=== PATIENT | female | born 2000 | race Caucasian/White ===

== ENCOUNTER → 2020-04-10 09:15 | Outpatient (BNVA) | payer SELFPAY | PROVIDERS: Family Provider Family Medicine; Visit Provider Nurse Practitioner Women's Health | DX: N91.4 Secondary oligomenorrhea (principal) | CPT/HCPCS: 84146; 84443; 84702 ==

== ENCOUNTER 2020-07-20 11:06 | Outpatient (CLI) | payer MEDICAID, SELFPAY ==
--- NOTE | 2020-07-20 11:16 | XR_ITS ---
WS: [id number] SCOLIOSIS SURVEY Upright AP and lateral radiographs of the thoracic and lumbar spine are submitted. HISTORY: spinal curve. Scoliosis. COMPARISON: 04/05/2014 Standing AP and lateral views of the thoracolumbar spine demonstrate thoracolumbar scoliosis. Mild RIGHT convex curvature thoracic spine centered at T9 of 19 degrees is similar to the prior study . Vertebral body complement is normal. LEFT convex curvature lumbar spine centered at L3 of 19 degrees also is stable. Prior cholecystectomy. XR/XR scoliosis survey - [id number] IMPRESSION: S-shaped thoracolumbar scoliosis without significant interval change since 04/05. Minimal increased by 2 degrees of the thoracic and lumbar curvatures.
[2020-07-20 14:10] LABS: Hematocrit 40.8 % (37.0-47.0); Hemoglobin 12.8 g/dL (11.5-15.3); Mean Corpuscular HGB Conc 31.4 g/dL (30.0-36.0); Mean Corpuscular Hemoglobin 26.4 pg (28.0-34.0); Mean Corpuscular Volume 84.1 fL (81-99); Mean Platelet Volume 9.2 fL (7.4-10.4); Platelet Count 321 10^3/cmm (130-400); Red Blood Count 4.85 10^6/uL (4.1-5.3); Red Cell Distribution Width 13.2 % (12.1-15.1); White Blood Count 8.7 10^3/uL (4.5-13.0)
[2020-07-20 14:29] LABS: Ferritin 57 ng/mL (15-150); Iron 55 ug/dL (37-145)
[2020-07-20 14:30] LABS: Absolute Segmented Neutrophil 5.8 10/cmm (1.6-7.1); Lymphocytes 28 %; Lymphocytes Absolute 2.6 10^3/cmm (1.2-3.4); Monocytes Absolute 0.3 10^3/cmm (0.1-0.6); Platelet Estimate Normal (Normal); Segmented Neutrophils 67 %; Total Cells Counted 100 (0-100)
== END 2020-07-20 11:07 | disposition home or self-care (01) ==
LOC: RADWPI 11:11
PROVIDERS: Family Provider Family Medicine; PCP Family Medicine; Visit Provider Nurse Practitioner
DX: M43.9 Deforming dorsopathy, unspecified (principal); Z86.2 Personal history of diseases of the blood and blood-forming organs and certain disorders involving the immune mechanism; M41.85 Other forms of scoliosis, thoracolumbar region
CPT/HCPCS: 72083; 81025; 82728; 83540; 85007; 85027; 85045

== ENCOUNTER 2021-05-27 15:33 | Outpatient (CLI) | payer BC, MEDICAID, SELFPAY ==
--- NOTE | 2021-05-27 15:37 | US_ITS ---
WS: [id number] OBSTETRICAL ULTRASOUND COMPLETE HISTORY: ANATOMY US COMPARISON: None available. Single intrauterine gestation in Cephalic presentation. Cervix is Closed and normal length. Cervical length is 4.1 cm. Normal amount of amniotic fluid surrounds the fetus. Placenta: Anterior, no previa or abruption. Placenta grade 1 Heart: 144 BPM. Four chambers are identified. RIGHT and LEFT outflow tracts are unremarkable. Anatomy: Intracranial structures and spine are normal. Spine is posterior during the examinatio n. No abnormality visualized. kidneys, stomach and urinary bladder are unremarkable. Abdominal wall, three-vessel cord and cord insertion site are normal. 4 extremities are present. profile: Unremarkable. Gender: Male. measurements: BPD = 4.6 cm = 20w0d HC = 17.6 cm = 20w1d AC = 14.8 cm = 20w1d FL = 3.2 cm = 20w1d EFW: 331 g. Biometry is internally concordant. AGA by ultrasound: 20w1d JOSE by ultrasound: 10/13/2021 US/US OB >= 14 weeks fetus [id number] IMPRESSION: 1. Single intrauterine gestation of 20w1d with an JOSE of 10/13/2021. 2. Unremarkable screening survey of anatomy.
== END 2021-05-27 15:34 | disposition home or self-care (01) ==
LOC: US 15:36
PROVIDERS: PCP Family Medicine; Visit Provider Family Medicine
DX: Z34.92 Encounter for supervision of normal pregnancy, unspecified, second trimester; Z3A.20 20 weeks gestation of pregnancy
CPT/HCPCS: 76805

== ENCOUNTER → 2021-08-01 11:23 | Day surgery (SDC) | payer BC, MEDICAID, SELFPAY ==
[2021-08-01 12:45] VITALS: BP 116/62; PULSE 88; RESP 16; TEMP 36.7; O2SAT 99
[2021-08-01 12:52] VITALS: BMI 34.2
[2021-08-01 13:00] VITALS: BP 116/62; PULSE 88; RESP 16; TEMP 36.7; O2SAT 99
== END ==
PROVIDERS: PCP Family Medicine; Visit Provider Family Medicine
DX: Z32.00 Encounter for pregnancy test, result unknown (principal)
CPT/HCPCS: 36415; 36430; 86850; 86900; 90384; 96372

== ENCOUNTER 2021-10-15 06:19 | Inpatient (IN) | payer BC, MEDICAID, SELFPAY ==
[2021-10-15] VITALS (60 sets, daily range): BP systolic 111–148; BP diastolic 53–84; PULSE 73–116; RESP 20; TEMP 36.6–36.9; O2SAT 99–100; BMI 35.6
[2021-10-15] MEDS: miSOPROStol 100 mcg tablet 25 MCG VAGINAL (07:30)
[2021-10-15 07:33] LABS: Basophils # 0.1 10^3/uL (0.0-0.1); Basophils % 0.6 %; Eosinophils # 0.1 10^3/uL (0.0-0.8); Eosinophils % 1.6 %; Hematocrit 31.7 % (37.0-47.0); Lymphocytes % 24.3 %; Mean Corpuscular HGB Conc 31.5 g/dL (30.0-36.0); Mean Corpuscular Hemoglobin 26.2 pg (28.0-34.0); Mean Corpuscular Volume 83.2 fl (81-99); Mean Platelet Volume 10.3 fL (7.4-10.4); Monocytes # 0.7 10^3/uL (0.2-0.9); Monocytes % 8.9 %; Neutrophils # 5.11 10^3/uL (1.8-7.7); Neutrophils % 63.7 %; Nucleated Red Blood Cells % 0 %; Platelet Count 218 10^3/cmm (130-400); Red Blood Count 3.81 10^6/uL (4.1-5.3)
--- NOTE | 2021-10-15 08:39 | PM.HP ---
Providers/Chief Complaint Admitting Physician: Addison Mejia MD Primary Care Provider: Addison Mejia MD Chief Complaint: INDUCTION History of Present Illness Akash Rodriguez is a 21 year old at 39.2 weeks gestation by LMP consistent with early ultrasound. Her is complicated by asthma, history of gestational hypertension, GERD, Rh-, anemia, measuring large for gestational age. The patient presents to labor and delivery triage secondary to elective induction for concerns of measuring large for gestational age on ultrasound done on 10/07/2021. The infant's estimated weight was 4301 g. Due to the concern of having a large for gestational age , it was felt best to induce at 39 weeks gestation. The patient is feeling well at this time. She denies any chest pains, shortness of breath, fever, cough, nausea, vomiting, diarrhea, constipation, dysuria, vaginal bleeding, leakage of fluid. Medications/Allergies Home Medications Medication Instructions Recorded Confirmed Last Taken Type albuterol sulfate 90 mcg/actuation 2 puff INHALATION Q4H PRN gm 04/10/20 08/01/21 1 Week Ago History aerosol inhaler ~07/25/21 pantoprazole 20 mg PO DAILY 08/01/21 08/01/21 07/31/21 History ewkaqbjg-fjy-Wk-FA 1 tab PO 08/01/21 07/31/21 History [] Allergies Allergy/AdvReac Type Severity Reaction Status Date / Time Sulfa (Sulfonamide Allergy Mild rash Verified 10/15/21 06:41 Antibiotics) PFSH Acute PFSH: Medical History (Updated 10/15/21 @ 19:23 by Addison Mejia MD) Asthma Surgical History H/O oral surgery History of cholecystectomy (~01/2015) History of tonsillectomy and adenoidectomy Family History Grandmother Diabetes Maternal grandmother Hypertension Maternal garndmother Mother Thyroid disease Denies family history of Colon cancer Ovarian cancer Heart disease Hyperlipidemia Breast cancer Family history of thyroid problem Uterine cancer Stroke Social History Smoking and tobacco status: former smoker Quit status (tobacco): has quit using tobacco Year quit tobacco: 04/2018 Former quit date comment: 2-1 ppd prior Alcohol intake: current Alcohol intake frequency: few times a month Alcohol type: wine Desire information about alcohol rehabilitation?: No Lives independently: Yes Household members: significant other and children Number of children: 1 Highest education level completed: 11th Grade service: No Sexually active: Yes Current gender identity: Female Female Reproductive History: Date of last menstrual period: 05/05/20 : 2 Para: 1 Spontaneous abortions: No Vitals/I&O/Wt Last Vital Signs Temp 98.4 F 10/15/21 14:45 Pulse 83 10/15/21 18:52 Resp 20 H 10/15/21 14:45 BP 130/69 10/15/21 18:52 Pulse Ox 100 10/15/21 13:42 Weight last 48 hrs Weight 234 lb Physical Exam Narrative: EXAM NARRATIVE: General: Alert and oriented x3 Eyes: Pupils equal round and reactive to light and accommodation Mouth: Mucous membranes moist, pharynx non-erythematous Cardiac: Regular rate and rhythm without murmurs Lungs: Clear to auscultation bilaterally without wheezes, crackles or rhonchi Abdomen: Soft, non-tender, fundus consistent with gestational age Extremities: Trace edema in the bilateral lower extremities Urinary Catheter Management^: Zepeda: Cath Placed During This Visit: yes, but has since been removed by the nurse Reason for Continuing Indwelling Catheter: Other Urinary Catheter Date of Insertion: 10/15/21 Urinary Catheter Time of Insertion: 13:25 Date Urinary Catheter Removed: 10/15/21 Time Urinary Catheter Discontinued: 18:15 Data : 10/15/21 06:55 A&P Assessment and plan (1) Intrauterine : Status: Acute (2) Rh negative status during : Status: Acute Additional A&P Information The patient is doing well at this time. We will proceed with induction of labor using Cytotec to start. All questions were answered. heart tones are category 1 tracing. The patient does not currently have contractions. Attestations Medical Necessity Statement*: The patient will be here for greater than 2 midnights due to routine intrapartum and management of labor and delivery. Coding Level of Care Code Acute Bottoming Room Supervisor for Haog Fwd Diagnoses Intrauterine Z34.90 Rh negative status during O26.899; Z67.91
--- NOTE | 2021-10-15 08:56 | PC.NURSE ---
note Visited with mom and dad about their plan to breastfeed. Provided Understanding book and contact information.
[2021-10-15] MEDS: lactated ringers 1,000 ML 999 ML IV ×2 (12:18→13:14)
--- NOTE | 2021-10-15 13:11 | ANES.PREANE2 ---
Pre-Anesthetic Assessment Pre-Anesthetic Assessment: Height/Weight: Height 1.73 m Weight 106.141 kg Temp Pulse Resp BP 97.8 F 82 20 H 137/61 10/15/21 07:30 10/15/21 12:56 10/15/21 07:00 10/15/21 12:56 Preop Diagnosis: IOL Was Beta Garrett taken within 24 hours: N/A Was Clonidine taken within 24 hours: N/A Social: Social History: No alcohol and No tobacco Exam: Pre-Anes Outpt Exam: alert, oriented x 3, clear to auscultation bilaterally and regular rate & rhythm Airway: Submandibular: WNL Cervical ROM: WNL MP: 3 Dentition: Full History/ROS: No significant history except as noted Pulmonary: Pulmonary: Asthma CV/HEM: CV/HEM: None reported : : None reported Hepatic: Hepatic: None reported GI: GI: GERD Metabolic: Metabolic: None reported Musc/skel: Musc/skel: None reported Neuropsych: Neuropsych: None reported Anesthetic Plan: ASA status: 2 Risk of > 500 ml blood loss (7ml/kg in children): No Meds/Allergies Current Medications: Current Medications Generic Name Dose Route Start Last Admin Trade Name Freq PRN Reason Stop Dose Admin Lactated Ringer's 1,000 mls @ 999 m ls/hr 10/15/21 12:08 10/15/21 12:18 Lactated Ringers IV 999 mls/hr .Q1H1M PRN Administration ANESTHESIA Protocol Misoprostol 25 mcg 10/15/21 06:45 10/15/21 07:30 Misoprostol 100 Mcg Tablet VAGINAL 10/15/21 14:46 25 mcg Q4H BERYL Administration PFSH Anesthesia PFSH: Medical History Asthma Surgical History H/O oral surgery History of cholecystectomy (~01/2015) History of tonsillectomy and adenoidectomy Family History Grandmother Diabetes Maternal grandmother Hypertension Maternal garndmother Mother Thyroid disease Denies family history of Colon cancer Ovarian cancer Heart disease Hyperlipidemia Breast cancer Family history of thyroid problem Uterine cancer Stroke Social History Smoking and tobacco status: former smoker Quit status (tobacco): has quit using tobacco Year quit tobacco: 04/2018 Former quit date comment: 11/10-1 ppd prior Alcohol intake: current Alcohol intake frequency: few times a month Alcohol type: wine Desire information about alcohol rehabilitation?: No Lives independently: Yes Household members: significant other and children Number of children: 1 Highest education level completed: 11th Grade service: No Sexually active: Yes Current gender identity: Female Female Reproductive History: Date of last menstrual period: 05/05/20 : 2 Para: 1 Spontaneous abortions: No Data Anesthesia CBC & Chem 7: 10/15/21 06:55 Other Labs: Laboratory Results - last 48 hr 10/15/21 06:55 WBC 8.0 RBC 3.81 L Hgb 10.0 L Hct 31.7 L MCV 83.2 MCH 26.2 L MCHC 31.5 RDW 16.0 H Plt Count 218 MPV 10.3 Neut % (Auto) 63.7 Lymph % (Auto) 24.3 [place] % (Auto) 8.9 Eos % (Auto) 1.6 Baso % (Auto) 0.6 Neut # (Auto) 5.11 Lymph # (Auto) 2.0 [place] # (Auto) 0.7 Eos # (Auto) 0.1 Baso # (Auto) 0.1 Nucleated RBC % (auto) 0 Nucleated RBCs # 0.0 Cardiac Studies: No Data to Display
[2021-10-15] MEDS: dextrose 5%-lactated ringers 1,000 ML 125 ML IV (16:58)
[2021-10-15] MEDS: oxytocin 30 UNIT/500 ML BAG 600 UNIT IV (18:50)
--- NOTE | 2021-10-15 19:25 | P.PCNOB_ITS ---
Delivery Note: Date of delivery: October 15, 2021 Pre-delivery diagnoses: 1. Intrauterine at 39.2 weeks gestation 2. Asthma 3. Rh- 4. Anemia 5. Large for gestational age measurements Post-delivery diagnoses: 1. Intrauterine status post spontaneous vaginal delivery at 39.2 weeks gestation 2. Asthma 3. Rh- 4. Anemia 5. Large for gestational age 6. Delivery of healthy infant male weighing 8 pounds 15 ounces with Apgars of 9 and 9 7. Intact placenta 8. Intact perineum Op report anesthesia: Epidural Estimated blood loss (mL): 125 Pre-Delivery Course: The patient presented for induction of labor secondary to the measuring large for gestational age. The patient was started on Cytotec as she was 1 cm dilated upon admission. With 1 dose, she began to contract regularly every 2 to 3 minutes. She made steady change to 4 to 5 cm, however then stalled out for a few hours. For this reason AROM was performed at 1641 on 10/15/2021 to augment labor. Fluid was noted to be clear. The patient continued to have a category 1 heart tone tracing. The patient did receive a laboring epidural. The patient was complete by 1810 on 10/15/2021. Delivery: The patient began pushing at 1831 on 10/15/2021. The descended well and was born in the OA position at 1847 on 10/15/2021. The right shoulder was the anterior shoulder and it delivered with steady downward pressure. Rest of the infant delivered without complication. There was no nuchal cord. The infant's mouth and nose were bulb suctioned by myself. The was crying immediately upon delivery. The was placed on the mother's chest where the nurses were waiting to care for him. The cord was clamped by myself after approximately 1 minute. Cord blood was obtained. The cord was then drained of blood and traction was placed on umbilical cord. Uterus was massaged and the placenta delivered without complication at 1850 on 10/15/2021. The placenta was noted to be intact with a central umbilical cord insertion site. The uterus was massaged and there is initially moderate bleeding that gradually decreased. IV Pitocin was started directly after the delivery of the placenta. The bleeding gradually decreased. The vaginal wall was inspected and no lacerations were noted. The cervix was inspected and no lacerations were noted. Currently both the mother and are doing well. History History History 1 Term 1 Miscarriages/Ectopic 0 0 Living Children 1 A&P Assessment and plan (1) Intrauterine : Status: Acute (2) Rh negative status during : Status: Acute Coding Level of Care Code Acute Educational Assistant for Chg Fwd Diagnoses Intrauterine Z34.90 Rh negative status during O26.899; Z67.91
[2021-10-15] MEDS: ibuprofen 800 mg tablet PO (20:57)
[2021-10-15] MEDS: lanolin oint 7 gm 1 APPLIC TOPICAL (22:19)
[2021-10-15] MEDS: benzocaine-menthol 78 gm Canister 1 SPRAY TOPICAL (22:19)
[2021-10-16] VITALS (8 sets, daily range): BP systolic 117–136; BP diastolic 58–69; PULSE 68–97; RESP 15–18; TEMP 36.4–36.9
[2021-10-16 07:17] LABS: Hematocrit 30.7 % (37.0-47.0); Hemoglobin 9.8 g/dL (11.5-15.3); Mean Corpuscular HGB Conc 31.9 g/dL (30.0-36.0); Mean Corpuscular Hemoglobin 26.8 pg (28.0-34.0); Mean Corpuscular Volume 84.1 fl (81-99); Mean Platelet Volume 10.1 fL (7.4-10.4); Platelet Count 206 10^3/cmm (130-400); Red Blood Count 3.65 10^6/uL (4.1-5.3); White Blood Count 9.7 10^3/uL (4.0-10.0)
--- NOTE | 2021-10-16 08:34 | PM.PN ---
Subjective Subjective: Interval history: The patient is doing well. She is ambulating, voiding, passing gas and tolerating food by mouth. Her bleeding is decreasing well. Her pain is well controlled. Vitals/I&O/Wt Last Vital Signs Temp 98.4 F 10/15/21 20:32 Pulse 68 10/16/21 04:57 Resp 20 H 10/15/21 14:45 BP 123/69 10/16/21 04:57 Pulse Ox 100 10/15/21 13:42 10/15/21 10/16/21 10/16/21 22:59 06:59 14:59 Intake Total 555.2 / 555.2 1000 / 1555.2 Output Total 500 / 500 Balance 55.2 / 55.2 1000 / 1055.2 Weight last 48 hrs Weight 234 lb Physical Exam Narrative: EXAM NARRATIVE: General: Alert and oriented x3 Cardiac: Regular rate and rhythm without murmurs Lungs: Clear to auscultation bilaterally without wheezes, crackles or rhonchi Abdomen: Soft, fundus is firm and midline and 2 cm below the umbilicus Extremities: Trace edema in the bilateral lower extremities Urinary Catheter Management^: Zepeda: Cath Placed During This Visit: yes, but has since been removed by the nurse Reason for Continuing Indwelling Catheter: Other Urinary Catheter Date of Insertion: 10/15/21 Urinary Catheter Time of Insertion: 13:25 Date Urinary Catheter Removed: 10/15/21 Time Urinary Catheter Discontinued: 18:15 Data : 10/16/21 07:08 A&P Additional A&P Information The patient is doing well . She is showing no signs of complications. We will proceed with routine care. Plan for discharge home tomorrow as long as she continues to do well. Attestations Medical Necessity Statement*: The patient requires inpatient care and her stay will cross 2 midnights. Coding Level of Care Code Acute Letter Stamping Machine Operator for Joyce Whiting
[2021-10-16] MEDS: ibuprofen 800 mg tablet PO ×3 (10:14→21:47)
[2021-10-16] MEDS: prenatal vitamin Capsule 1 CAP PO (10:15)
[2021-10-16] MEDS: docusate sodium 100 mg Capsule PO (10:15)
--- NOTE | 2021-10-16 12:00 | ANE.PACU2 ---
Inpatient post-anesthesia follow up: Airway intact: Yes Vital signs: Temperature 98.0 F Pulse Rate 100 Respiratory Rate 17 Blood Pressure 118/69 Pulse Oximetry 100 Oxygen Delivery Me thod Room Air Oxygen Flow Rate Fraction of Inspir ed Oxygen Hydration adequate: Yes Nausea and vomiting: No Pain level: 2 Mental status: Baseline
[2021-10-17 03:16] VITALS: BP 108/64; PULSE 77
[2021-10-17] MEDS: docusate sodium 100 mg Capsule PO (10:16)
[2021-10-17] MEDS: ibuprofen 800 mg tablet PO (10:16)
[2021-10-17] MEDS: prenatal vitamin Capsule 1 CAP PO (10:16)
[2021-10-17] MEDS: ferrous sulfate EC 325 mg Tablet PO (10:16)
[2021-10-17 10:25] VITALS: RESP 17; TEMP 36.7
[2021-10-17 10:26] VITALS: BP 118/69; PULSE 100
[2021-10-17 10:35] VITALS: BP 118/69; PULSE 100; RESP 17; TEMP 36.7
--- NOTE | 2021-10-17 12:40 | PM.DCS ---
Discharge Providers Date of Admission: 10/15/21 06:19 Date of Discharge: October 26, 2021 Attending Provider at Admission: Addison eMjia MD Attending Provider at Discharge: Addison Mejia MD Primary Care Provider: Addison Mejia MD Diagnoses at Discharge Discharge Diagnosis (1) Intrauterine : Status: Resolved (2) Rh negative status during : Status: Resolved Other Information Additional DC diagnoses/information: 1. Intrauterine status post spontaneous vaginal delivery at 39.2 weeks gestation 2. Asthma 3. Rh- 4. Anemia 5. Large for gestational age 6. Delivery of healthy infant male weighing 8 pounds 15 ounces with Apgars of 9 and 9 7. Intact placenta Reason for Visit Reason for Visit: INDUCTION Hospital Course Hospital Course Pre-Delivery Course: The patient presented for induction of labor secondary to the measuring large for gestational age. The patient was started on Cytotec as she was 1 cm dilated upon admission. With 1 dose, she began to contract regularly every 2 to 3 minutes. She made steady change to 4 to 5 cm, however then stalled out for a few hours. For this reason AROM was performed at 1641 on 10/15/2021 to augment labor. Fluid was noted to be clear. The patient continued to have a category 1 heart tone tracing. The patient did receive a laboring epidural. The patient was complete by 1810 on 10/15/2021. Delivery: The patient began pushing at 1831 on 10/15/2021. The descended well and was born in the OA position at 1847 on 10/15/2021. The right shoulder was the anterior shoulder and it delivered with steady downward pressure. Rest of the delivered without complication. There was no nuchal cord. The 's mouth and nose were bulb suctioned by myself. The was crying immediately upon delivery. The infant was placed on the mother's chest where the nurses were waiting to care for him. The cord was clamped by myself after approximately 1 minute. Cord blood was obtained. The cord was then drained of blood and traction was placed on umbilical cord. Uterus was massaged and the placenta delivered without complication at 1850 on 10/15/2021. The placenta was noted to be intact with a central umbilical cord insertion site. The uterus was massaged and there is initially moderate bleeding that gradually decreased. IV Pitocin was started directly after the delivery of the placenta. The bleeding gradually decreased. The vaginal wall was inspected and no lacerations were noted. The cervix was inspected and no lacerations were noted. : The patient is doing well at this time. She is showing no signs of complications. She is ambulating, voiding, passing gas and tolerating food by mouth. Her pain is well controlled. Routine discharge instructions were discussed. All questions were answered. Proceed with routine care and discharge home. The patient is in agreement with the current plan of care. Physical Exam Narrative: EXAM NARRATIVE: General: Alert and oriented x3 Cardiac: Regular rate and rhythm without murmurs Lungs: Clear to auscultation bilaterally without wheezes, crackles or rhonchi Abdomen: Soft, fundus is firm and midline and 2 cm below the umbilicus Extremities: +1 edema in the bilateral lower extremities Urinary Catheter Management^: Zepeda: Cath Placed During This Visit: yes, but has since been removed by the nurse Reason for Continuing Indwelling Catheter: Other Urinary Catheter Date of Insertion: 10/15/21 Urinary Catheter Time of Insertion: 13:25 Date Urinary Catheter Removed: 10/15/21 Time Urinary Catheter Discontinued: 18:15 Discharge Data Vitals: Last Vital Signs Temp 98.0 F 10/17/21 10:35 Pulse 100 10/17/21 10:35 Resp 17 10/17/21 10:35 BP 118/69 10/17/21 10:35 Pulse Ox 100 10/15/21 13:42 Discharge Plan Discharge Patient Disposition: Home Condition: Good Prescriptions: New ibuprofen 800 mg Tablet 800 mg PO TID Qty: 30 RF: 0 ferrous sulfate 325 mg (65 mg iron) Tablet,Delayed Release (Dr/Ec) 325 mg PO BIDWM Qty: 30 RF: 0 Continued albuterol sulfate [ProAir HFA] 90 mcg/actuation HFA aerosol inhaler 2 puff INHALATION Q4H PRN (Reason: Shortness Of Breath) RF: 0 pantoprazole 20 mg Tablet,Delayed Release (Dr/Ec) 20 mg PO DAILY RF: 0 vzemqgty-lie-Un-FA 1 mg Tablet 1 tab PO DAILY RF: 0 Discharge Orders: Discharge Order (Routine); Ordered 10/17/21 Ordered By: Addison Mejia Referrals: Addison Mejia MD [Primary Care Provider] - 6 Weeks (Your 6 week post appointment is November 26 @ 9:00AM.) Discharge Diet: Usual diet Discharge Activity: Resume usual activity Patient Instructions: Depression (DC), Expression, Collection and Storage of Breast Milk (DC), Bleeding (DC), Preeclampsia and Eclampsia After Delivery (GEN), OB Discharge Report, OB Food/Drug Interaction Guide, Opioid Safety, OB Home Care, OB Vaginal Deliveries Activity Restrictions/Additional Instructions: Nothing per vagina for 6 weeks. Discharge Attestations Time Spent in Discharge Care*: greater than 30 min Quality Metrics Clinical Quality Measures During this hospital stay, did patient experience: None Coding Level of Care Code Acute Chg FW DC note Diagnoses Intrauterine Z34.90 Rh negative status during O26.899; Z67.91
== END 2021-10-17 10:35 | disposition home or self-care (01) | DRG 807 ==
LOC: OPOB 06:19 → OBGYN 06:19
PROVIDERS: Admitting Provider Family Medicine; PCP Family Medicine; Visit Provider Family Medicine
DX: O36.63X0 Maternal care for excessive fetal growth, third trimester, not applicable or unspecified (principal); Z37.0 Single live birth; O99.02 Anemia complicating childbirth; D64.9 Anemia, unspecified; Z3A.39 39 weeks gestation of pregnancy; Z67.91 Unspecified blood type, Rh negative; O99.52 Diseases of the respiratory system complicating childbirth; J45.909 Unspecified asthma, uncomplicated; O99.62 Diseases of the digestive system complicating childbirth; K21.9 Gastro-esophageal reflux disease without esophagitis
CPT/HCPCS: 36415; 51702; 59025; 59409; 85025; 85027; 98960; 99211; J2795

== ENCOUNTER → 2021-12-09 11:00 | Outpatient (BNVA) | payer BC, MEDICAID, SELFPAY | PROVIDERS: PCP Family Medicine; Referring Provider Family Medicine; Visit Provider Anesthesiology Pain Medicine | DX: R51.9 Headache, unspecified (principal); Z87.891 Personal history of nicotine dependence | CPT/HCPCS: 99202; 99203 ==

== ENCOUNTER → 2022-04-10 14:12 | Outpatient (BNVA) | payer BC, MEDICAID, SELFPAY | PROVIDERS: PCP Family Medicine; Visit Provider Family Medicine | DX: Z51.81 Encounter for therapeutic drug level monitoring (principal); R53.81 Other malaise; R53.83 Other fatigue | CPT/HCPCS: 80053; 84439; 84443; 85025 ==

== ENCOUNTER → 2022-07-07 14:22 | Outpatient (BNVA) | payer BC, MEDICAID, SELFPAY | PROVIDERS: PCP Family Medicine; Visit Provider Surgery | DX: K52.9 Noninfective gastroenteritis and colitis, unspecified (principal); Z86.2 Personal history of diseases of the blood and blood-forming organs and certain disorders involving the immune mechanism; K29.70 Gastritis, unspecified, without bleeding | CPT/HCPCS: 99203 ==

== ENCOUNTER 2022-08-22 07:03 | Day surgery (SDC) | payer BC, MEDICAID, SELFPAY ==
[2022-08-20 14:09] VITALS: BMI 36.5
[2022-08-22 07:28] LABS: OR HCG Qualitative Urine Negative (Negative)
[2022-08-22] MEDS: sodium chloride 0.9% 1,000 ML 30 ML IV (07:40)
--- NOTE | 2022-08-22 07:57 | ANES.PREANE2 ---
Pre-Anesthetic Assessment Height/Weight: Height 1.73 m Weight 108.862 kg Preop Diagnosis: Chronic diarrhea, anemia and acid reflux Operation Date: 08/22/22 08:30 Proposed Procedures p EGD and colonoscopy 30077,73312,K52.9,Z86.2,K29.70(Not Applicable) - Andrew Batista MD s Colonoscopy(Not Applicable) - Andrew Batista MD Familial anesthetic complications: none Was Beta Garrett taken within 24 hours: N/A Was Clonidine taken within 24 hours: N/A Last intake: Intake Last Liquid Date 08/21/22 Last Liquid Time 20:00 Last Solid Date 08/20/22 Last Solid Time 22:00 Social No alcohol and No tobacco Exam alert, oriented x 3, clear to auscultation bilaterally and regular rate & rhythm Airway Mallampati: Class III Dentition: full Pulmonary Asthma CV/HEM Anemia GI Gastroesophageal Reflux Disease Anesthetic Plan ASA status: 2 Anesthesia: MAC Risk of > 500 ml blood loss (7ml/kg in children): No Medications/Allergies Home Medications Medication Instructions Recorded Confirmed Last Taken Type albuterol sulfate 90 mcg/actuation 2 puff inhalation Q4H PRN 04/10/20 08/20/22 08/18/22 History aerosol inhaler (ProAir HFA) Shortness Of Breath budesonide 180 mcg/actuation 1 inh inhalation BID 12/09/21 08/20/22 08/18/22 History breath activated powder inhaler (Pulmicort Flexhaler) amitriptyline 10 mg tablet 10 mg PO DAILY #30 tabs 06/26/22 08/20/22 08/18/22 Rx pantoprazole 20 mg tablet,delayed 40 mg PO DAILY 06/26/22 08/20/22 08/18/22 History release peg 3350-electrolytes 236 240 ml PO Q10M #4,000 mL 07/07/22 08/20/22 Unknown Rx gram-22.74 gram-6.74 gram-5.86 gram solution (Golytely) Allergies Allergy/AdvReac Type Severity Reaction Status Date / Time Sulfa (Sulfonamide Allergy Mild rash Verified 07/08/22 06:34 Antibiotics) Current Medications Generic Name Dose Route Start Last Admin Trade Name Freq PRN Reason Stop Dose Admin Sodium Chloride 1,000 mls @ 30 mls/hr 08/22/22 07:30 08/22/22 07:40 Sodium Chloride 0.9% IV 08/23/22 07:29 30 mls/hr .Q24H BERYL Administration PFSH Anesthesia Medical History Asthma Surgical History H/O oral surgery History of cholecystectomy (~01/2015) History of tonsillectomy and adenoidectomy Family History Grandmother Diabetes Maternal grandmother Hypertension Maternal garndmother Mother Thyroid disease Denies family history of Colon cancer Ovarian cancer Heart disease Hyperlipidemia Breast cancer Family history of thyroid problem Uterine cancer Stroke Social History Smoking and tobacco status: never smoked Quit status (tobacco): has quit using tobacco Year quit tobacco: 04/2018 Former quit date comment: 1/2-1 ppd prior Second hand smoke exposure: No Alcohol intake: never Desire information about alcohol rehabilitation?: No Lives independently: Yes Household members: significant other and children Number of children: 1 Highest education level completed: 11th Grade service: No History of recent travel: No Sexually active: Yes Current gender identity: Female Female Reproductive History Date of last menstrual period: 05/05/20 Para: 1 Spontaneous abortions: No Data Anesthesia Cardiac Studies: No Data to Display
--- NOTE | 2022-08-22 08:09 | P.HP_ITS ---
Same Day Surgery H&P Indication for Procedure/HPI DATE OF PROCEDURE: August 22, 2022 CHIEF COMPLAINT/INDICATIONFOR SURGICAL PROCEDURE: Bowel issues PREOP DIAGNOSIS: Chronic diarrhea, anemia and acid reflux PLANNED PROCEDURE: Operation Date: 08/22/22 08:30 Proposed Procedures p EGD and colonoscopy 43140,21718,K52.9,Z86.2,K29.70(Not Applicable) - Andrew Batista MD s Colonoscopy(Not Applicable) - Andrew Batista MD 07/07/2022 This is a pleasant 23 years old female patient presents to my practice with a broad spectrum of symptomatology including but not limited to worsening acid reflux in spite of being on PPI therapy for more than 6 months in addition to chronic diarrhea.? She reports that her gallbladder is out and her mom had history of IBS, denies history of inflammatory bowel disease or colon cancer. Patient reports history of diarrhea, nonbloody in nature, has been going on for quite some time.? Patient denies history of recent travels, antibiotics, change in medications, questionable source of water, no history of sick contacts, no history of thyroid disorders. Interim history 08/22/2022 Patient comes today for diagnostic EGD and colonoscopy. Patient had her gallbladder out. ROS All systems have been reviewed negative except as for the above or per problem list. Medications/Allergies* Home Medications Medication Instructions Recorded Confirmed Type albuterol sulfate 90 mcg/actuation 2 puff inhalation Q4H PRN 04/10/20 08/20/22 History aerosol inhaler (ProAir HFA) Shortness Of Breath budesonide 180 mcg/actuation 1 inh inhalation BID 12/09/21 08/20/22 History breath activated powder inhaler (Pulmicort Flexhaler) pantoprazole 20 mg tablet,delayed 40 mg PO DAILY 06/26/22 08/20/22 History release Allergies/Adverse Reactions Allergy/AdvReac Type Severity Reaction Status Date / Time Sulfa (Sulfonamide Allergy Mild rash Verified 08/22/22 08:10 Antibiotics) Current Medications: Generic Name Dose Route Start Last Admin Trade Name Freq PRN Reason Stop Dose Admin Sodium Chloride 1,000 mls @ 30 mls/hr 08/22/22 07:30 08/22/22 07:40 Sodium Chloride 0.9% IV 08/23/22 07:29 30 mls/hr .Q24H BERYL Administration Pertinent History/Comorbid Conditions* Medical History (Updated 06/26/22 @ 16:59 by Addison Mejia MD) Asthma Surgical History (Updated 04/10/20 @ 08:47 by Natalya Garduno APN, SHONDA) H/O oral surgery History of cholecystectomy (~01/2015) History of tonsillectomy and adenoidectomy Family History (Updated 04/10/20 @ 08:47 by Natalya Garduno APN, SHONDA) Diabetes Grandmother Maternal grandmother Hypertension Grandmother Maternal garndmother Thyroid disease Mother Denies family history of Colon cancer Ovarian cancer Heart disease Hyperlipidemia Breast cancer Family history of thyroid problem Uterine cancer Stroke Social History Smoking and tobacco status: never smoked Quit status (tobacco): has quit using tobacco Year quit tobacco: 04/2018 Former quit date comment: 1/2-1 ppd prior Second hand smoke exposure: No Alcohol intake: never Desire information about alcohol rehabilitation?: No Lives independently: Yes Household members: significant other and children Number of children: 1 Highest education level completed: 11th Grade service: No History of recent travel: No Sexually active: Yes Current gender identity: Female Pertinent Exam Findings alert, oriented x 3, regular rate & rhythm and procedure specific exam findings (Abdominal exam nontender nondistended soft) Recommendations Surgery/Procedure today (EGD and colonoscopy with possible biopsy) Coding Level of Care Code Acute Orthopedic Mechanic for Joyce Whiting
[2022-08-22 09:33] VITALS: BP 119/61; PULSE 106; RESP 18; TEMP 36.1; O2SAT 100
[2022-08-22 09:38] VITALS: BP 96/42; PULSE 84; RESP 20; O2SAT 98
[2022-08-22 09:48] VITALS: BP 90/47; PULSE 63; RESP 20; O2SAT 100
[2022-08-22 10:00] VITALS: BP 96/65; PULSE 73; RESP 20; O2SAT 100
--- NOTE | 2022-08-22 13:29 | ANE.PACU2 ---
Inpatient post-anesthesia follow up: Airway intact: Yes Vital signs: Temperature 97.0 F Pulse Rate 73 Respiratory Rate 20 Blood Pressure 96/65 Pulse Oximetry 100 Oxygen Delivery Me thod Room Air Oxygen Flow Rate 3 Fraction of Inspir ed Oxygen Hydration adequate: Yes Nausea and vomiting: No Pain level: 1 Mental status: Baseline
== END 2022-08-22 10:12 | disposition home or self-care (01) ==
PROVIDERS: Anesthesiology; PCP Family Medicine; Visit Provider Surgery
PROC: 0DJ08ZZ Inspection of Upper Intestinal Tract, Via Natural or Artificial Opening Endoscopic (ICD-10-PCS; CPT 43235; principal; 2022-08-22 08:30)
PROC: 0DJD8ZZ Inspection of Lower Intestinal Tract, Via Natural or Artificial Opening Endoscopic (ICD-10-PCS; CPT 45378; 2022-08-22 08:30)
DX: K52.9 Noninfective gastroenteritis and colitis, unspecified (principal); Z86.2 Personal history of diseases of the blood and blood-forming organs and certain disorders involving the immune mechanism; K29.50 Unspecified chronic gastritis without bleeding; B96.81 Helicobacter pylori [H. pylori] as the cause of diseases classified elsewhere; K21.9 Gastro-esophageal reflux disease without esophagitis; Z87.891 Personal history of nicotine dependence
CPT/HCPCS: 43239; 45378; 81025; 82274; 83630; 84703; 87493; 87506; 88305; J2704; J7030

== ENCOUNTER 2022-10-09 08:08 | Outpatient (CLI) | payer BC, MEDICAID, SELFPAY ==
--- NOTE | 2022-10-09 08:00 | FL_ITS ---
WS: [id number] [place] gastro [id number] REASON FOR EXAM: K52.9 - Noninfective gastroenteritis and colitis, unspeci... FLUOROSCOPY TIME: 0min [id number] # OF SPOT FILMS: 9 FINDINGS: After ingestion of the barium meal the course of the barium from the stomach into the colon was follo wed with serial overhead radiographs, fluoroscopic evaluation, and spot films. Normal transit time from stomach to colon. The duodenum was unremarkable. The jejunum demonstrated a normal caliber and fold pattern. The ileum was of normal caliber with normal fold pattern. No fixation of bowel loops. Terminal ileum was well-visualized and normal. FL/[place] gastro [id number] IMPRESSION: No significant abnormality.
== END 2022-10-09 08:09 | disposition home or self-care (01) ==
PROVIDERS: PCP Family Medicine; Visit Provider Surgery
DX: K52.9 Noninfective gastroenteritis and colitis, unspecified (principal)
CPT/HCPCS: 74250

== ENCOUNTER → 2023-06-22 11:30 | Outpatient (BNVA) | payer BC, MEDICAID, SELFPAY | PROVIDERS: PCP Family Medicine; Visit Provider Nurse Practitioner Women's Health | DX: Z01.419 Encounter for gynecological examination (general) (routine) without abnormal findings (principal) | CPT/HCPCS: 88175 ==

== ENCOUNTER → 2023-07-01 10:20 | Outpatient (BNVA) | payer BC, MEDICAID, SELFPAY | PROVIDERS: PCP Family Medicine; Visit Provider Family Medicine | DX: Z13.1 Encounter for screening for diabetes mellitus (principal); E61.1 Iron deficiency; R51.9 Headache, unspecified; G89.29 Other chronic pain; F32.A Depression, unspecified; E28.2 Polycystic ovarian syndrome; R63.5 Abnormal weight gain | CPT/HCPCS: 82728; 83036; 83550; 84466 ==

== ENCOUNTER → 2023-07-06 10:51 | Outpatient (BNVA) | payer BC, MEDICAID, SELFPAY | PROVIDERS: PCP Family Medicine; Referring Provider Family Medicine; Visit Provider Psychiatry & Neurology Neurology | DX: R51.9 Headache, unspecified (principal); G89.29 Other chronic pain | CPT/HCPCS: 36415; 82306; 82607; 82746; 83735; 83921 ==

== ENCOUNTER 2023-08-04 13:06 | Outpatient (CLI) | payer BC, MEDICAID, SELFPAY ==
--- NOTE | 2023-08-04 13:00 | MR_ITS ---
WS: [id number] MRA HEAD TECHNIQUE: Axial 3-D TOF images obtained with axial images and axial, sagittal, and coronal 2-D refor matted images. CLINICAL INFORMATION: R51.9 - Headache, unspecified COMPARISON: None. FINDINGS: Distal vertebral arteries are patent. Basilar artery is patent. Normal vascularity to the [employer] territo ry bilaterally. Both ICAs are patent at the skull base. Normal vascularity to the MILLIE and MCA territories bilaterally . No evidence of proximal flow-limiting stenosis or aneurysm. Patent anterior communicating artery. IMPRESSION: Unremarkable intracranial MRA.
--- NOTE | 2023-08-04 13:15 | MR_ITS ---
WS: [id number] MRI HEAD WITH CONTRAST TECHNIQUE: Sagittal T1, T2 axial, T2 axial FLAIR, axial susceptibility weighted imaging, axial diffus ion weighted images, and coronal T2 images were obtained. Pre and post-T1 axial and post T1 coronal i mages. ADC and FSPGR images. CLINICAL INFORMATION: R51.9 - Headache, unspecified COMPARISON: None. FINDINGS: No evidence of restricted diffusion to suggest acute ischemia. Ventricular system and basilar cistern s are patent. Normal posterior fossa. Normal cerebellar tonsils. Normal britton-white differentiation. N o suspicious intracranial signal abnormalities. 1 or 2 very tiny foci of T2 hyperintensity in the LEF T frontal white matter of doubtful clinical significance but can be seen with migraine headaches. Adj acent incidental periventricular perivascular spaces. Normal vascular flow voids at the skull base. No extra-axial fluid collections. No evidence of mass o r mass effect. Paranasal sinuses and mastoid air cells are well aerated. Normal posterior nasopharynx and parapharyngeal fat. Normal optic chiasm and pituitary infundibulum. Temporal lobes and hippocampal formations are normal in appearance. No hemosiderin on the susceptibly weighted images. No abnormal gadolinium enhancement. Normal visuali zed dural venous sinuses. IMPRESSION: 1. No evidence of restricted diffusion to suggest acute ischemia. 2. 1 or 2 very tiny foci of T2 hyperintensity in the LEFT frontal white matter of doubtful clinical significance but can be seen with migraine headaches. 3. No suspicious intracranial signal abnormalities. 4. No abnormal gadolinium enhancement. 5. No hemosiderin on susceptibility-weighted images. 6. No other suspicious findings.
[2023-08-04] MEDS: gadobenate dimeglumine 20 mL vial IV (13:47)
--- NOTE | 2023-08-04 14:00 | MR_ITS ---
WS: [id number] MRA CAROTID WITHOUT AND WITH GADOLINIUM ENHANCEMENT TECHNIQUE: Axial 2-D TOF and gadolinium bolus images obtained with axial images and axial, sagittal, and coronal 2-D reformatted images. CLINICAL INFORMATION: R51.9 - Headache, unspecified COMPARISON: None. FINDINGS: Codominant and patent vertebral arteries bilaterally. Proximal basilar artery is patent. RIGHT: RIGHT common artery is patent. No significant RIGHT ICA stenosis. RIGHT ICA is patent to the s kull base. LEFT: LEFT common carotid artery is patent. No significant LEFT ICA stenosis. LEFT ICA is patent to t he skull base. IMPRESSION: Normal neck MRA.
== END 2023-08-04 13:07 | disposition home or self-care (01) ==
LOC: RAD 13:06
PROVIDERS: PCP Family Medicine; Visit Provider Specialist
DX: R51.9 Headache, unspecified (principal); G89.29 Other chronic pain
CPT/HCPCS: 70544; 70548; 70553; A9577

== ENCOUNTER 2024-11-08 09:06 | Outpatient (CLI) | payer BC, SELFPAY ==
[2024-11-08 10:13] LABS: Basophils # 0.1 10^3/uL (0.0-0.1); Basophils % 0.8 %; Eosinophils # 0.3 10^3/uL (0.0-0.8); Eosinophils % 3.6 %; Hematocrit 39.4 % (36-47); Lymphocytes # 2.2 10^3/uL (0.8-4.8); Lymphocytes % 26.4 %; Mean Corpuscular HGB Conc 31.7 g/dL (30-55); Mean Corpuscular Volume 85.1 fl (85-98); Mean Platelet Volume 9.3 fL (7.4-10.4); Monocytes # 0.7 10^3/uL (0.2-0.9); Monocytes % 8.2 %; Neutrophils # 5.05 10^3/uL (1.8-7.7); Neutrophils % 60.5 %; Nucleated Red Blood Cells % 0 %; Platelet Count 288 10^3/cmm (157-399); Red Blood Count 4.63 10^6/uL (3.85-5.65); Red Cell Distribution Width 13.2 % (12.1-15.1); White Blood Count 8.34 10^3/uL (3.29-11.43)
[2024-11-08 10:34] LABS: Alanine Aminotransferase 21 U/L (0-33); Alkaline Phosphatase 75 U/L (35-105); Anion Gap 11.7 (5-19); Aspartate Amino Transferase 17 U/L (0-32); Blood Urea Nitrogen 13 mg/dL (6-20); Calcium 9.3 mg/dL (8.5-10.5); Carbon Dioxide 27 mmol/L (22-29); Chloride 103 mmol/L (98-107); Glomerular Filtration Rate 122.8 mL/min (90-130); Glucose 86 mg/dL (65-115); Iron 64 ug/dL (37-145); Osmolality Calculated 283 mOsm/kg (285-295); Percent Saturation 20.2 % (20-50); Potassium 4.7 mmol/L (3.5-5.1); Sodium 137 mmol/L (136-145); Total Bilirubin 0.6 mg/dL (0.15-1.2); Total Iron Binding Capacity 316 mcg/dl; Unsaturated Iron Binding 252 ug/dL (112-347)
[2024-11-08 10:50] LABS: 25 Hydroxy Vitamin D 18 ng/mL (30-100); Vitamin B12 806 pg/mL (232-1245)
== END 2024-11-08 09:07 | disposition home or self-care (01) ==
LOC: LAB 09:15
PROVIDERS: PCP Family Medicine; Visit Provider Family Medicine
DX: E55.9 Vitamin D deficiency, unspecified (principal); Z51.81 Encounter for therapeutic drug level monitoring; E61.1 Iron deficiency; E53.8 Deficiency of other specified B group vitamins
CPT/HCPCS: 36415; 80053; 82306; 82607; 83540; 83550; 85025

== ENCOUNTER 2024-11-15 09:22 | Outpatient (CLI) | payer BC, SELFPAY ==
--- NOTE | 2024-11-15 09:15 | USR_ITS ---
PROCEDURE INFORMATION: Exam: US Pelvis, Complete, Non-Obstetric Exam date and time: 11/15/2024 9:34 AM Age: 24 years old Clinical indication: Menstruation abnormalities; Irregular menstruation; Additional info: Intermenstrual bleeding TECHNIQUE: Imaging protocol: Transabdominal pelvic nonobstetric ultrasound. Complete exam. Real time ultrasound with image documentation. COMPARISON: US pelv w/transvag [id number] 04/22/2018 1:17 PM FINDINGS: Uterus: The uterus is retroflexed. The uterus measures 9.2 x 4.4 x 5.8 cm in size. The endometrial stripe measures 5 mm. No endometrial fluid collections are identified. There are small nabothian cysts. No uterine masses are identified. Right ovary/adnexa: The right ovary measures 2.2 x 2.4 x 3.2 cm in size. There are a few follicles. There is normal duplex and color Doppler blood flow to the right ovary. Left ovary/adnexa: The left ovary measures 4 x 1.7 x 2.4 cm in size. There are a few follicles. There is normal duplex and color Doppler blood flow to the left ovary. Intraperitoneal space: No intraperitoneal fluid. Urinary bladder: Normal. US/US pelv w/transvag [id number] IMPRESSION: No acute findings.
== END 2024-11-15 09:23 | disposition home or self-care (01) ==
LOC: RAD 09:24
PROVIDERS: PCP Family Medicine; Visit Provider Family Medicine
DX: N92.3 Ovulation bleeding (principal); N85.4 Malposition of uterus
CPT/HCPCS: 76830; 76856

== ENCOUNTER → 2024-12-13 15:50 | Outpatient (BNVA) | payer BC, SELFPAY | PROVIDERS: PCP Family Medicine; Visit Provider Family Medicine | DX: Z01.419 Encounter for gynecological examination (general) (routine) without abnormal findings (principal) | CPT/HCPCS: 87624 ==

== ENCOUNTER → 2025-04-07 15:18 | Outpatient (BNVA) | payer BC, SELFPAY | PROVIDERS: PCP Family Medicine; Visit Provider Nurse Practitioner | DX: R30.0 Dysuria (principal) | CPT/HCPCS: 81000; 87086 ==

== ENCOUNTER → 2025-05-29 09:01 | Outpatient (BNVA) | payer BC, SELFPAY | PROVIDERS: PCP Family Medicine; Visit Provider Family Medicine | DX: N39.0 Urinary tract infection, site not specified (principal) | CPT/HCPCS: 81003; 87086 ==

== ENCOUNTER → 2025-06-05 13:05 | Outpatient (BNVA) | payer BC, SELFPAY | PROVIDERS: PCP Family Medicine; Visit Provider Podiatrist Foot & Ankle Surgery | DX: S92.525A Nondisplaced fracture of middle phalanx of left lesser toe(s), initial encounter for closed fracture (principal); W19.XXXA Unspecified fall, initial encounter | CPT/HCPCS: 73630 ==

== ENCOUNTER 2025-10-11 13:09 | Outpatient (CLI) | payer BC, SELFPAY ==
[2025-10-11 14:06] LABS: Hematocrit 40.2 % (36-47); Hemoglobin 12.80 g/dL (11.27-16.99); Mean Corpuscular HGB Conc 31.8 g/dL (30-55); Mean Corpuscular Hemoglobin 26.7 pg (27-33); Mean Corpuscular Volume 83.9 fl (85-98); Nucleated Red Blood Cells % 0 %; Platelet Count 324 10^3/cmm (157-399); Red Blood Count 4.79 10^6/uL (3.85-5.65); White Blood Count 8.82 10^3/uL (3.29-11.43)
[2025-10-11 14:46] LABS: Alanine Aminotransferase 27 U/L (0-33); Albumin Level 4.6 g/dL (3.5-5.2); Alkaline Phosphatase 66 U/L (35-105); Anion Gap 15.9 (5-19); Aspartate Amino Transferase 19 U/L (0-32); Blood Urea Nitrogen 14 mg/dL (6-20); Calcium 9.4 mg/dL (8.5-10.5); Carbon Dioxide 24 mmol/L (22-29); Chloride 103 mmol/L (98-107); Globulin 2.9 g/dL (1.3-4.6); Glucose 86 mg/dL (65-115); Osmolality Calculated 288 mOsm/kg (285-295); Potassium 3.9 mmol/L (3.5-5.1); Sodium 139 mmol/L (136-145); Thyroid Stimulating Hormone 1.25 uIU/mL (0.27-4.20); Total Protein 7.5 g/dL (6.6-8.7); Vitamin B12 894 pg/mL (232-1245)
[2025-10-11 15:01] LABS: Estmated Average Glucose 108; Hemoglobin A1C 5.4 % (4.0-6.0)
== END 2025-10-11 13:10 | disposition home or self-care (01) ==
LOC: LAB 13:09
PROVIDERS: PCP Family Medicine; Visit Provider Family Medicine
DX: Z00.00 Encounter for general adult medical examination without abnormal findings (principal); Z51.81 Encounter for therapeutic drug level monitoring; E53.8 Deficiency of other specified B group vitamins; R53.81 Other malaise; R53.83 Other fatigue; E55.9 Vitamin D deficiency, unspecified; R73.09 Other abnormal glucose
CPT/HCPCS: 80053; 82306; 82607; 83036; 84443; 85025